=== PATIENT | female | born 1970 | race Native Hawaiian/Other Pacific Islander ===

== ENCOUNTER 2018-05-03 21:08 | Emergency (ER) | payer OTHER ==
[~2018-05-03] VITALS: Ht 167.6 cm; Wt 158.8 kg
[2018-05-03 23:11] LABS: PLATELET COUNT 268 K/uL (152-353)
[2018-05-03 23:19] LABS: POTASSIUM 2.7 mmol/L (3.6-5.2)
[2018-05-04 02:20] VITALS: BP 146/73; TEMP 98.2
[2018-05-04] MEDS ORDERED: FERROUS SULF325 M1 PO (11:43)
[2018-05-04] MEDS ORDERED: LEVO-T200 MCG PO (11:45)
[2018-05-04] MEDS ORDERED: METO5TAB38 PO (11:53)
[2018-05-04] MEDS ORDERED: POTA20TA4 PO (11:56)
[2018-05-04] MEDS ORDERED: ACID REDUCER75 MG PO (11:58)
[2018-05-04] MEDS ORDERED: RISPERDAL3 MG PO (11:59)
[2018-05-04] MEDS ORDERED: DEMADEX20 MG PO (12:00)
[2018-05-04] MEDS ORDERED: TRAZ100T PO (12:03)
[2018-05-04] MEDS ORDERED: 904272561 PO (12:04)
[2018-05-04] MEDS ORDERED: METF500T PO (12:05)
[2018-05-04] MEDS ORDERED: GABA300C2 PO (12:07)
[2018-05-04] MEDS ORDERED: TIZANIDINE HYDRO2 MG PO (12:08)
[2018-05-04] MEDS ORDERED: REFRESH LIQUIGEL 1% OPTH ×2 (12:09→12:10)
[2018-05-04] MEDS ORDERED: DOCU100C10 PO (12:11)
[2018-05-04] MEDS ORDERED: TYLENOL325 MG PO (12:11)
[2018-05-04] MEDS ORDERED: TRAM50TA PO (12:12)
[2018-05-04] MEDS ORDERED: BENZTROPINE0.5 MG PO (12:13)
[2018-05-04] MEDS ORDERED: CELEXA40 MG PO (12:14)
[2018-05-04] MEDS ORDERED: DIVALPROEX500 M1 PO (12:15)
== END 2018-05-04 02:21 | disposition still patient (30) ==
LOC: ED 21:08
PROVIDERS: Allergy & Immunology
DX: F20.89 Other schizophrenia (principal); F32.89 Other specified depressive episodes; E87.6 Hypokalemia; Z04.6 Encounter for general psychiatric examination, requested by authority
CPT/HCPCS: 36415; 80053; 81000; 85027; 93005; 99285

== ENCOUNTER 2018-05-24 22:04 | Emergency (ER) | payer OTHER ==
[~2018-05-24] VITALS: Ht 167.6 cm; Wt 130.6 kg
[~2018-05-24 22:04] MED LIST: 904272561 PO; ACID REDUCER75 MG PO; ARIPIPRAZOLE5 MG PO; ATOR20TA2 PO; BENZTROPINE0.5 MG PO; CELEXA40 MG PO; CHOL100034 PO; DEMADEX20 MG PO; DIVALPROEX500 M1 PO; DOCU100C10 PO; ESCI10TA PO; FERROUS SULF325 M1 PO; FOLI1TAB26 PO; FURO40TA93 PO; GABA300C2 PO; LEVO-T200 MCG PO; METF500T PO; METO5TAB38 PO; POTA20TA4 PO; REFRESH LIQUIGEL 1% OPTH; RISPERDAL3 MG PO; TIZANIDINE HYDRO2 MG PO; TRAM50TA PO; TRAZ100T PO; TYLENOL325 MG PO
[2018-05-24] MEDS ORDERED: CITALOPRAM40 MG PO (22:36)
[2018-05-24] MEDS ORDERED: RISPERDAL3 MG PO (22:39)
[2018-05-24 23:07] LABS: PLATELET COUNT 329 K/uL (152-353)
[2018-05-24 23:27] LABS: POTASSIUM 1.7 mmol/L (3.6-5.2)
[2018-05-25] MEDS ORDERED: BENZTROPINE0.5 MG PO (01:02)
[2018-05-25] MEDS ORDERED: BENZ1TAB43 PO (01:03)
[2018-05-25] MEDS ORDERED: BUCKLEYS C100 MG/5 M PO (01:11)
[2018-05-25] MEDS ORDERED: IPRATROPIUM/ INH (01:11)
[2018-05-25] MEDS ORDERED: TRAM50TA PO (01:12)
[2018-05-25 01:22] VITALS: BP 110/72; TEMP 98.2
== END 2018-05-25 01:23 | disposition other institution (70) ==
LOC: ED 22:04
PROVIDERS: Family Medicine
DX: E87.6 Hypokalemia (principal); E66.8 Other obesity; F22 Delusional disorders; I45.19 Other right bundle-branch block; Z04.6 Encounter for general psychiatric examination, requested by authority
CPT/HCPCS: 36415; 80053; 85027; 93005; 99285